=== PATIENT | male | born 1970 | race Caucasian/White ===

== ENCOUNTER → 2021-09-09 | Outpatient (CLI) | payer SELFPAY ==
[~2021-09-09] MED LIST: BAMLANIVIMAB (EUA) 700 MG, ETESEVIMAB (EUA) 1,400 MG in SODIUM CHLORIDE 0.9% 50 ML IVPB NR; SODIUM CHLORIDE 0.9% 50 ML IVPB ONE; SODIUM CHLORIDE 0.9% 500 ML 500 ML in EMPTY BAG 1 BAG IV PRN
[2021-09-09 14:03] VITALS: RESP 16
[2021-09-09 14:50] VITALS: PULSE 68
[2021-09-09 15:02] VITALS: BP 122/69; TEMP 99
== END | disposition home or self-care (01) ==
LOC: PROCWHC3 13:02
PROVIDERS: ATTEND Nurse Practitioner Adult Health
DX: U07.1 COVID-19 (principal)
CPT/HCPCS: 96360; J3490; M0245